=== PATIENT | male | born 1995 | race Caucasian/White ===

== ENCOUNTER 2017-09-30 16:10 | Emergency (ER) | payer OTHER ==
[~2017-09-30] VITALS: Ht 177.8 cm; Wt 68.0 kg
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
[2017-09-30] MEDS ORDERED: Lidocaine HCl 2% Jelly 5ml Tube TOPIC ONE (16:45)
[2017-09-30] MEDS ORDERED: BACITRACIN ZIN1 EACH TOPIC (16:52)
[2017-09-30] MEDS ORDERED: IBUPROFEN600 MG ORAL (16:52)
[2017-09-30] MEDS ORDERED: Bacitracin Oint UD TOPIC ONE (17:00)
[2017-09-30 17:25] VITALS: BP 128/77
--- NOTE | 2017-10-01 10:58 | Diagnostic Imaging Report ---
Indication: Pain Findings: 3 views of the right wrist were obtained. No acute fractures, malalignment, erosions or periostitis are identified. Soft tissues are unremarkable. Impression: No acute findings.
== END 2017-09-30 18:00 | disposition home or self-care (01) ==
LOC: EMR 17:05
DX: M24.231 Disorder of ligament, right wrist (principal); S60.811A Abrasion of right wrist, initial encounter; S80.01XA Contusion of right knee, initial encounter; Z88.0 Allergy status to penicillin; Z88.8 Allergy status to other drugs, medicaments and biological substances; V18.0XXA Pedal cycle driver injured in noncollision transport accident in nontraffic accident, initial encounter; Y93.55 Activity, bike riding; Y92.410 Unspecified street and highway as the place of occurrence of the external cause
CPT/HCPCS: 99284